=== PATIENT | female | born 1965 | race Caucasian/White ===

== ENCOUNTER 2016-08-03 12:34 | Emergency (ER) | payer OTHER ==
[~2016-08-03] VITALS: Ht 149.9 cm; Wt 79.4 kg
== END 2016-08-03 14:26 | disposition short-term general hospital (02) ==
LOC: ER 12:34
DX: R07.9 Chest pain, unspecified (principal); R10.11 Right upper quadrant pain; F17.210 Nicotine dependence, cigarettes, uncomplicated
CPT/HCPCS: J2270; J2405

== ENCOUNTER 2016-08-11 09:46 | Day surgery (SDC) | payer OTHER ==
[~2016-08-11] VITALS: Ht 152.4 cm; Wt 83.1 kg
== END 2016-08-12 08:20 | disposition short-term general hospital (02) ==
LOC: SURGOP 09:46 → IP 16:45 → SURGOP 08-12 08:20
PROC: 0FT44ZZ Resection of Gallbladder, Percutaneous Endoscopic Approach (ICD-10-PCS; principal; 2016-08-11)
DX: K81.1 Chronic cholecystitis (principal); K21.9 Gastro-esophageal reflux disease without esophagitis; E66.9 Obesity, unspecified; F17.200 Nicotine dependence, unspecified, uncomplicated; Z68.35 Body mass index [BMI] 35.0-35.9, adult; Z88.0 Allergy status to penicillin; Z79.891 Long term (current) use of opiate analgesic; Z90.710 Acquired absence of both cervix and uterus
CPT/HCPCS: J0131; J0330; J1100; J1170; J1885; J1956; J2250; J2270; J2405; J2710; J3010

== ENCOUNTER 2016-08-14 11:26 | Emergency (ER) | payer OTHER ==
[~2016-08-14] VITALS: Ht 152.4 cm; Wt 79.4 kg
[2016-08-14] MEDS ORDERED: ALEVE220 MG PO (15:47)
[2016-08-14] MEDS ORDERED: NORCO 325-5 MG1 TAB PO (15:47)
== END 2016-08-14 14:05 | disposition short-term general hospital (02) ==
LOC: ER 11:26
DX: J93.9 Pneumothorax, unspecified (principal); J44.9 Chronic obstructive pulmonary disease, unspecified; Z88.0 Allergy status to penicillin; F17.210 Nicotine dependence, cigarettes, uncomplicated; Z90.710 Acquired absence of both cervix and uterus
CPT/HCPCS: J0131; J1170; J2250; J3010

== ENCOUNTER → 2016-08-18 | Outpatient (CLI) | payer OTHER ==
[~2016-08-18] MED LIST: ALEVE220 MG PO; NORCO 325-5 MG1 TAB PO
== END | disposition short-term general hospital (02) ==
LOC: CLSURG 10:31
DX: Z48.815 Encounter for surgical aftercare following surgery on the digestive system (principal); Z90.49 Acquired absence of other specified parts of digestive tract; Z87.19 Personal history of other diseases of the digestive system